=== PATIENT | female | born 1985 | race Two or more races ===

== ENCOUNTER 2024-03-08 11:44 | Emergency (ER) | payer OTHER, SELFPAY ==
--- NOTE | ~2024-03-08 | CT_ITS ---
EXAMINATION: CT cervical spine wo con DATE: 03/08/2024 12:39 INDICATION: Neck injury. TECHNIQUE: Computed tomography (CT) of the cervical spine was performed without intravenous contrast. Automated exposure control and iterative reconstruction technique were employed. The dose-length pro duct was 376.66 mGy-cm. COMPARISON: None FINDINGS: There is 6 degrees dextrocurvature of cervical spine. There is kyphosis of cervical spine. Vertebral body heights and intervertebral disc heights are normal. The following disc levels are spec ifically discussed: C2-C3: There is no uncovertebral joint osteoarthritis. There is mild bilateral facet joint osteoarthr itis. There is no neural foraminal stenosis. There is no central canal stenosis. C3-C4: There is no uncovertebral joint osteoarthritis. There is moderate right and mild left facet adrián int osteoarthritis. There is no neural foraminal stenosis. There is no central canal stenosis. C4-C5: There is no uncovertebral joint osteoarthritis. There is severe right facet joint osteoarthrit is. There is mild right neural foraminal stenosis. There is no central canal stenosis. C5-C6: There is no uncovertebral joint osteoarthritis. There is mild right facet joint osteoarthritis . There is no neural foraminal stenosis. There is no central canal stenosis. C6-C7: There is no uncovertebral joint osteoarthritis. There is mild bilateral facet joint osteoarthr itis. There is no neural foraminal stenosis. There is no central canal stenosis. C7-T1: There is no uncovertebral joint osteoarthritis. There is mild bilateral facet joint osteoarthr itis. There is no neural foraminal stenosis. There is no central canal stenosis. IMPRESSION: 1. No fracture. 2. Mild cervical spondylosis. Reviewed, dictated and finalized at location A. UCT INTRODUCTION MANAGER
--- NOTE | ~2024-03-08 | CT_ITS ---
EXAMINATION: CT brain wo con DATE: 03/08/2024 12:38 INDICATION: Head injury. TECHNIQUE: Computed tomography (CT) of the head was performed without intravenous contrast. The mA wa s adjusted according to patient size. Iterative reconstruction technique was employed. The dose-lengt h product was 681.00 mGy-cm. COMPARISON: None FINDINGS: There is no intracranial hemorrhage, acute infarction, or abnormal intracranial mass lesion . The ventricles are normal in size. There is mucosal thickening and fluid in the paranasal sinuses. The mastoid air cells are normal. The orbits are normal. IMPRESSION: 1. Normal brain. Reviewed, dictated and finalized at location A. TRIC METER SETTER IMPRESSION: 1. Normal brain.
[2024-03-08 11:51] VITALS: BP 114/69; PULSE 59; RESP 14; TEMP 36.9; O2SAT 100
[2024-03-08] MEDS: MORPHINE SULFATE (*CRX) 4 MG/ML INJ IV PUSH (12:41)
[2024-03-08 12:47] VITALS: BP 134/82; PULSE 52; RESP 17; O2SAT 100
[2024-03-08] MEDS: CYCLOBENZAPRINE HCL 10 MG TABLET PO (13:23)
[2024-03-08 14:16] VITALS: BP 123/80; PULSE 53; RESP 16; O2SAT 100
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
[2024-03-08 15:17] VITALS: BP 129/90; PULSE 56; RESP 17; TEMP 36.7; O2SAT 100
== END 2024-03-08 15:18 | disposition home or self-care (01) ==
PROVIDERS: Emergency Provider Emergency Medicine
DX: S16.1XXA Strain of muscle, fascia and tendon at neck level, initial encounter (principal); Z90.49 Acquired absence of other specified parts of digestive tract; M47.812 Spondylosis without myelopathy or radiculopathy, cervical region; Y04.8XXA Assault by other bodily force, initial encounter
CPT/HCPCS: 70450; 72125; 96374; 99284; A9270; J2270